=== PATIENT | female | born 1965 | race Caucasian/White ===

== ENCOUNTER 2017-08-13 18:50 | Observation (INO) ==
[~2017-08-13 18:50] MED LIST: ENOXAPARIN 40 MG/0.4 ML SYRINGE SUBCUT SCH
[2017-08-13] MEDS ORDERED: hydrALAZINE 20 MG/1 ML VIAL IV STA ×2 (19:39→22:13)
[2017-08-13] MEDS ORDERED: hydrALAZINE 20 MG/1 ML VIAL ONE (19:41)
--- NOTE | 2017-08-13 19:42 | Emergency Department Note ---
IZeferino Gwan, am scribing for, and in the presence of, Roxane Moreno DO 19:24 . IJosh Debra, DO, personally performed the services described in this documentation, ascribed by Fuentes Mcgarry in my presence, and it is both accurate and complete 941 . Arrival - Arrival Chief Complaint: Blood Pressure Stated Complaint: High BP, Vomiting ED Nursing Triage Note: AMB TO ER WITH C/O ELEVATED BP AND VOMITTING. STATES PCP CHANGED BP MEDS 4 DAYS AGO AND TODAY BP WAS ELEVATED AT HOME AROUND 160'S/ 100'S. STATES SHE CALLED HER PCP AND HE INSTRUCTED HER TO TAKE AN ADDITIONAL BP PILL. SHE DID INSTRUCTED BUT BP REMAINED ELEVATED AND SINCE HAS STILL BEEN ELEVATED AND HAS BEEN VOMITTING SINCE 1800. WAS CHANGED FROM HCTZ TO LOSARTAN. BP LEFT ARM INITIAL CHECK WAS 205/125. RIGHT ARM 185/112. Mode of Arrival: Ambulatory Limitations: No Limitations Source: Patient, Old Records Reviewed, RN Notes Reviewed - History of Present Illness HPI Narrative: Patient is a 51 y/o female, with a hx of HTN, who presents to the ED with a c/ o elevated BP and vomiting with an onset today. At time of triage, pt's BP was 185/112. Patient stated that she took her BP today at home and received a reading of 160's/100's. She then noted that she alerted her PCP Dr. Sunil Dorado and was instructed to administer an additional BP pill. Patient then said that s/p taking the BP medication, her reading remained elevated and she then began to vomit. This prompted the patient to report to ED for further evaluation. Patient confirmed that her PCP changed her BP medication from HCTZ to Losartan 4 days ago. During exam, patient was alert and awake. No other problems/complaints reported in ED. Onset (ago): hour(s) Consistency: constant Severity: moderate Date of Last Menstrual Period: NOW Allergies/Adverse Reactions: Allergies Allergy/AdvReac Type Severity Reaction Status Date / Time clindamycin Allergy RASH Verified 08/13/17 19:08 Penicillins Allergy RASH Verified 08/13/17 19:07 Sulfa (Sulfonamide Allergy Vomiting Verified 08/13/17 19:08 Antibiotics) Home Medications: Home Medications Medication Instructions Recorded Confirmed Type ALPRAZolam [Xanax] 0.5 mg PO DAILY PRN 11/22/16 08/13/17 History Losartan [Cozaar] 25 mg PO BID 08/13/17 08/13/17 History Review of System - Review of System 12 point system: reviewed and no additional remarkable complaints except as stated - Review of System Constitutional: Absent: chills, fever Gastrointestinal: Present: as per HPI, vomiting. Absent: abdominal pain, diarrhea Additional ROS comments: Patient has elevated blood pressure. Medical,Surgical,& Family Hx - Medical History Cardio: History of: Hypertension Psychological: History of: Anxiety Disorders, ADHD, Depression, Psychiatric Problems (PTSD) Rheumatology: History of;: Fibromyalgia - Family History Family History: Reports;: Family Cancer, Family Diabetes, Family Heart Disease - Social History Smoking Status: Never smoker Frequency of Alcohol Use: None Type of Drug Use: None Exam Vital Signs: Vital Signs Temperature 98.6 F 08/13/17 18:58 Pulse Rate 68 08/13/17 18:58 Respiratory Rate 18 08/13/17 18:58 Blood Pressure 185/112 08/13/17 18:58 O2 Sat by Pulse Oximetry 99 08/13/17 18:58 - General General appearance: alert, in no apparent distress - Head Head exam: Present: atraumatic, normocephalic - Eye Eye exam: Present: normal appearance, PERRL, EOMI - ENT ENT exam: Present: normal exam, normal oropharynx, mucous membranes moist, TM's normal bilaterally, normal external ear exam - Neck Neck exam: Present: full ROM, trachea midline. Absent: tenderness - Chest Chest inspection: Present: symmetric chest wall rise. Absent: tenderness - Respiratory Respiratory exam: Present: normal lung sounds bilaterally. Absent: respiratory distress - Cardiovascular Cardiovascular exam: Present: regular rate, normal rhythm, normal heart sounds. Absent: murmur - Abdominal Exam Abdominal exam: Present: soft, normal bowel sounds. Absent: distention, tenderness - Extremities Exam Extremities exam: Present: full ROM. Absent: tenderness - Back Exam Back exam: Present: full ROM. Absent: tenderness - Neurological Exam Neurological exam: Present: alert, oriented X3, CN II-XII intact. Absent: motor sensory deficit - Psychiatric Psychiatric exam: Present: normal affect, normal mood - Skin Skin exam: Present: warm, dry, intact, normal color Course Course Narrative: Patient was dispositioned as ready to discharge it was noted her blood pressure was still 170/110. Another dose of hydralazine 10 mg was ordered. Patient concerned about blood pressure staying up and will admit patient to the hospitalist service. She is stable at this time Results - Labs CBC & BMP: 08/13/17 19:19 08/13/17 19:19 Lab Results: I have reviewed the patients labs Labs: Laboratory Tests 08/13/17 08/13/17 19:19 19:19 WBC 9.9 RBC 4.28 Hgb 14.2 Hct 40.5 Plt Count 244 Neut % (Auto) 77.2 H Lymph % (Auto) 14.8 L Neut # (Auto) 7.6 H Sodium 140 Potassium 4.3 Chloride 105 Carbon Dioxide 29 BUN 12 Creatinine 0.90 Glucose 121 H Globulin 3.7 H Albumin/Globulin Ratio 0.9 L - Diagnostic Findings Procedure: CT: report reviewed by me (Head: No acute intracranial process. No significant interval change from the previous study. ) Disposition Clinical Impression: Hypertension Case discussed with: patient, patient's family Disposition: Still a Patient Instructions: Chronic Hypertension (ED), Hypertension (ED) Time of Disposition: 22:17
[2017-08-13 19:53] LABS: Basophils % 0.4 % (0.0-0.8); Eosinophils # 0.2 10*3/uL (0.0-0.87); Eosinophils % 1.9 % (0.00-10.9); Hematocrit 40.5 VOL% (35.7-47.0); Hemoglobin 14.2 GM/DL (12.0-16.0); Immature Granulocytes % 0.6 %; Immature Granulocytes Absolute 0.06 #; Lymphocytes # 1.5 10*3/uL (1.4-4.0); Lymphocytes % 14.8 % (21.3-54.2); Mean Corpuscular HGB Conc 35.1 GM/DL (32-36); Mean Corpuscular Hemoglobin 33 PG (27-34); Mean Corpuscular Volume 94.6 FL (87-102); Monocytes # 0.5 10*3/uL (0.11-0.8); Monocytes % 5.1 % (1.7-12.7); Neutrophils # 7.6 10*3/uL (1.4-7.4); Neutrophils % 77.2 % (38.7-73.9); Platelet Count 244 T/CUMM (130-400); Red Blood Count 4.28 MC/CUMM (3.8-5.5); Red Cell Distribution Width 11.9 % (9.3-17.3); White Blood Count 9.9 T/CUMM (4-12)
[2017-08-13 20:03] LABS: Albumin 3.6 G/DL (3.4-5.0); Bilirubin,Total 0.8 MG/DL (0.2-1.0); Calcium 9.3 MG/DL (8.5-10.1); Osmolality,Calculated 279.4 MOS/KG (273-304); Potassium 4.3 MMOL/L (3.5-5.1); Total Protein 7.3 G/DL (6.4-8.3)
[2017-08-13] MEDS ORDERED: cloNIDine 0.1 MG TABLET PO STA (20:10)
[2017-08-13] MEDS ORDERED: ONDANSETRON 4 MG/2 ML VIAL IV STA (20:11)
[2017-08-13] MEDS ORDERED: cloNIDine 0.1 MG TABLET ONE ×2 (20:12→20:18)
[2017-08-13] MEDS ORDERED: ONDANSETRON 4 MG/2 ML VIAL ONE (20:12)
--- NOTE | 2017-08-13 20:28 | CT Report ---
History: Headache Date: 08/13/2017 Study: CT head without contrast Comparison exam: September 15, [address] sections were obtained through the brain without contrast. The ventricles are midline in position without evidence of hydrocephalus. There is no mass or area of parenchymal hemorrhage. There is no gross CT evidence of acute cortical stroke. There is no extra-axial hematoma. The sinuses are generally clear. There is no obvious skull fracture. Impression: No acute intracranial process. No significant interval change from the previous study This CT exam was performed using one or more the following dose reduction techniques: Automated exposure control, adjustment of the MA and/or KV according to patient size, or use of iterative reconstruction technique. PROCEDURE INTERPRETED AT [facility] DEPARTMENT OF RADIOLOGY Final Report Signed by: Dr. Luz Elena Iqbal
[2017-08-13] MEDS ORDERED: MAGNESIUM CITRATE 300 ML BOTTLE ONE (22:49)
[2017-08-13] MEDS ORDERED: ONDANSETRON 4 MG/2 ML VIAL IV PRN (23:12)
[2017-08-13] MEDS ORDERED: PROMETHAZINE 25 MG TABLET PO PRN (23:12)
[2017-08-13] MEDS ORDERED: hydrALAZINE 20 MG/1 ML VIAL IV PRN (23:16)
--- NOTE | 2017-08-13 23:21 | Hospitalist History & Physical ---
Assessment and Plan (1) Hypertensive urgency Status: Acute Current Visit: Yes (2) Fibromyalgia Status: Acute Current Visit: Yes (3) Gastroenteritis Status: Acute Current Visit: Yes (4) Anxiety Status: Acute Current Visit: Yes (5) PTSD (post-traumatic stress disorder) Status: Acute Current Visit: Yes (6) Hypertension Status: Acute Assessment and plan: Patient's blood pressure in the emergency room was difficult to control with the diastolic pressure greater than 112. Patient is unable to keep anything down right now. Our plan for this patient 1. Admit patient our service 2. Gentle hydration with clear liquid diet 3. Medications for nausea 4. Home blood pressure medicine 5. Repeat labs in the morning 6. As needed hydralazine Current Visit: Yes History of Present Illness Chief complaint: Nausea vomiting not feeling well History of present illness: Ms. Nguyen is a 51 year old female with past medical history significant for PTSD, anxiety, hypertension and fibromyalgia who is in her normal state of health till today. Patient says she just was not feeling right she felt nauseated. She checked her blood pressure and it was 148/90. She is thrown up 3 times since 2 PM. She had some loose bowel movements and she came to our hospital for further evaluation. Patientrecently had her blood pressure medicines change in hydrochlorothiazide was DC'd approximately 1 week ago. Patient was told that her sodium was low by Dr. Dorado. Patient's face is flushed and I was consulted to admit her through the emergency room. Home Medications Medication Instructions Recorded Confirmed Type ALPRAZolam [Xanax] 0.5 mg PO DAILY PRN 11/22/16 08/13/17 History Losartan [Cozaar] 25 mg PO BID 08/13/17 08/13/17 History Allergies Allergy/AdvReac Type Severity Reaction Status Date / Time clindamycin Allergy RASH Verified 08/13/17 19:08 Penicillins Allergy RASH Verified 08/13/17 19:07 Sulfa (Sulfonamide Allergy Vomiting Verified 08/13/17 19:08 Antibiotics) Medical,Surgical,& Family Hx - Medical History Cardio: History of: Hypertension Psychological: History of: Anxiety Disorders, ADHD, Depression, Psychiatric Problems (PTSD) Rheumatology: History of;: Fibromyalgia - Surgical History Additional Surgical History: Patient did not tell me of any surgeries - Family History Family History: Reports;: Family Cancer, Family Diabetes, Family Heart Disease - Social History Smoking Status: Never smoker Frequency of Alcohol Use: None Type of Drug Use: None 12 point system: reviewed and no additional remarkable complaints except as stated Exam - Constitutional Vitals: Period Temp Pulse Resp BP Sys/Sutton Pulse Ox Last 24 Hr 98 F-98.6 F 68-68 18-18 185-185/112-112 99 General appearance: normal weight - Head Head exam: Present: normal inspection - Eye Eye exam: Present: EOMI Pupils: Present: GUSTAVO - ENT ENT exam: Present: normal exam - Neck Neck exam: Present: normal inspection - Respiratory Respiratory exam: Present: clear to auscultation bilaterally - Cardiovascular Cardiovascular exam: Present: regular rate and rhythm - GI/Abdominal GI/Abdominal exam: Present: normal bowel sounds - Extremities Exam Extremities exam: Present: normal inspection - Back Exam Back exam: Present: normal inspection - Neurological Exam Neurological exam: Present: alert, oriented X3 - Psychiatric Psychiatric exam: Present: anxious, flat affect - Skin Skin exam: Present: other (Patient's face is flushed) Results - Labs CBC & BMP: 08/13/17 19:19 08/13/17 19:19
[2017-08-13] MEDS ORDERED: SODIUM CHLORIDE 0.9% 1,000 ML IV SCH (23:30)
[2017-08-14] MEDS: ACETAMINOPHEN 325 MG TABLET PO PRN ×3 (00:27→18:44)
[2017-08-14 06:29] LABS: Basophils % 0.3 % (0.0-0.8); Eosinophils # 0.2 10*3/uL (0.0-0.87); Eosinophils % 1.9 % (0.00-10.9); Hematocrit 38.5 VOL% (35.7-47.0); Hemoglobin 13.3 GM/DL (12.0-16.0); Immature Granulocytes % 0.7 %; Immature Granulocytes Absolute 0.06 #; Lymphocytes % 22.1 % (21.3-54.2); Mean Corpuscular HGB Conc 34.5 GM/DL (32-36); Mean Corpuscular Hemoglobin 33 PG (27-34); Mean Corpuscular Volume 95.3 FL (87-102); Monocytes # 0.6 10*3/uL (0.11-0.8); Monocytes % 6.3 % (1.7-12.7); Neutrophils # 6.3 10*3/uL (1.4-7.4); Neutrophils % 68.7 % (38.7-73.9); Platelet Count 237 T/CUMM (130-400); Red Blood Count 4.04 MC/CUMM (3.8-5.5); Red Cell Distribution Width 11.9 % (9.3-17.3); White Blood Count 9.2 T/CUMM (4-12)
[2017-08-14 06:58] LABS: Calcium 8.9 MG/DL (8.5-10.1); Osmolality,Calculated 278.4 MOS/KG (273-304); Potassium 3.7 MMOL/L (3.5-5.1)
[2017-08-14] MEDS: ENOXAPARIN 40 MG/0.4 ML SYRINGE SUBCUT SCH ×2 (08:35→08:40)
[2017-08-14] MEDS: PANTOPRAZOLE 40 MG TABLET PO SCH ×2 (08:35→08:40)
[2017-08-14] MEDS ORDERED: LOSARTAN 25 MG TABLET PO SCH (09:00)
[2017-08-14] MEDS: ALPRAZolam 0.5 MG TABLET PO PRN (09:37)
--- NOTE | 2017-08-14 14:44 | Hospitalist Progress Note ---
Hospitalist: Subjective Interval history: Patient has no complaints. She denies any n/v/diarrhea. She is tolerating her clears but wants to advance. She denies any SOB or CP. Exam - Constitutional Vitals: Period Temp Pulse Resp BP Sys/Sutton Pulse Ox Last 24 Hr 97.4 F-98.9 F 54-68 18-20 129-185/86-112 94-99 General appearance: no acute distress - Head Head exam: Present: normal inspection - Eye Eye exam: Present: EOMI Pupils: Present: GUSTAVO - Respiratory Respiratory exam: Present: clear to auscultation bilaterally. Absent: rales, rhonchi, wheezes - Cardiovascular Cardiovascular exam: Present: regular rate and rhythm - GI/Abdominal GI/Abdominal exam: Present: normal bowel sounds, soft. Absent: distended, mass , tenderness - Extremities Exam Extremities exam: Absent: edema - Neurological Exam Neurological exam: Present: alert, oriented X3 - Psychiatric Psychiatric exam: Present: normal affect, normal mood Results - Labs CBC & BMP: 08/14/17 05:46 08/14/17 05:46 - Impressions Active Issues: 1. Hypertensive crises, resolving 2. Acute gastroenteritis, resolving 3. h/o FMS 4. h/o anxiety 5. h/o PTSD Plan: increase losartan to 50mg bid; monitor bmp; advance diet; continue home medications as appropriate; d/c IVFs; likely d/c in am as long as she is stable. Specialty Discharge - Follow Up or Referrals
[2017-08-14] MEDS: LOSARTAN 50 MG TABLET PO SCH (20:35)
[2017-08-15 06:55] LABS: Calcium 8.5 MG/DL (8.5-10.1); Magnesium 2.4 MG/DL (1.8-2.4); Osmolality,Calculated 278.4 MOS/KG (273-304); Potassium 4.4 MMOL/L (3.5-5.1)
[2017-08-15] MEDS: ENOXAPARIN 40 MG/0.4 ML SYRINGE SUBCUT SCH (08:43)
[2017-08-15] MEDS: PANTOPRAZOLE 40 MG TABLET PO SCH (08:44)
[2017-08-15] MEDS: LOSARTAN 50 MG TABLET PO SCH (08:45)
[2017-08-15] MEDS: ALPRAZolam 0.5 MG TABLET PO PRN (10:54)
[2017-08-15 12:33] VITALS: BP 136/77
--- NOTE | 2017-08-15 16:04 | Discharge Summary ---
Hospital Course - Hospital Course Hospital Course: Patient was admitted for hypertensive crises with blood pressure of 185/112 despite agents in the ER. She was also admitted for nausea/vomiting, and diarrhea. Patient's blood pressure was controlled while in the hospital. She was given supportive care with IVFs, anti emetics and clear liquid diet. Her diet was advanced to normal. Since her admission, she has not had any n/v/ diarrhea. Her blood pressure was controlled with increased dose of her home losartan of 50mg bid. She will be discharged on this dose. She will follow up with her PCM on 08/17/17. Active Issues: 1. Hypertensive crises, resolved. Current bp is 136/77. Will discharge on losartan. Will defer further management and follow up bmp to PCM. 2. Acute gastroenteritis, resolved 3. h/o FMS: stable 4. h/o anxiety: stable 5. h/o PTSD: stable Specialty Discharge - Follow Up or Referrals Discharge Plan - Discharge Data Discharge Diet: regular diet - Discharge Medications New Losartan [Cozaar] 50 mg PO BID tablet Continue ALPRAZolam [Xanax] 0.5 mg PO DAILY PRN PRN Reason: Anxiety Discontinued Losartan [Cozaar] 25 mg PO BID Potassium Chloride [Klor-Con 10] 20 meq PO DAILY - Follow Up or Referral - Forms/Instructions Instructions: Chronic Hypertension (ED), Hypertension (ED) Additional Discharge Instructions: Please follow up with your main doctor on Thursday. Please take 2 tablets of the 25mg of losartan twice a day Exam - Constitutional Vitals: Period Temp Pulse Resp BP Sys/Sutton Pulse Ox Last 24 Hr 97.6 F-98.3 F 49-64 12-18 111-136/69-86 96-98 General appearance: no acute distress - Head Head exam: Present: normal inspection - Eye Eye exam: Present: EOMI Pupils: Present: GUSTAVO - ENT ENT exam: Present: normal exam, normal oropharynx - Respiratory Respiratory exam: Present: clear to auscultation bilaterally - Cardiovascular Cardiovascular exam: Present: regular rate and rhythm - GI/Abdominal GI/Abdominal exam: Present: normal bowel sounds, soft. Absent: mass, tenderness - Extremities Exam Extremities exam: Absent: edema - Neurological Exam Neurological exam: Present: alert, oriented X3 - Psychiatric Psychiatric exam: Present: normal affect, normal mood Discharge Results Labs on day of discharge: Labs from last 24 hours 08/15/17 05:40 Sodium 140 Potassium 4.4 Chloride 106 Carbon Dioxide 30 Anion Gap 8.4 BUN 12 Creatinine 0.90 GFR Calculation 86 BUN/Creatinine Ratio 13.00 Glucose 96 Calculated Osmolality 278.4 Calcium 8.5 Magnesium 2.4 - Impressions Active Issues: 1. Hypertensive crises, resolved. Current bp is 136/77. Will discharge on losartan. Will defer further management and follow up bmp to PCM. 2. Acute gastroenteritis, resolved 3. h/o FMS: stable 4. h/o anxiety: stable 5. h/o PTSD: stable Patient is hemodynamically and clinically stable. She is safe for discharge. DS: Provider Date of admission: 08/13/17 23:12 Primary care physician: Sunil Dorado, Attending physician on admission: Deniz Looney MD Discharging clinician: Mague Matt MD
== END 2017-08-15 17:49 | disposition home or self-care (01) ==
LOC: N.EDINP 18:50 → N.ED 18:50 → SUATTDRO 23:12 → N.3E 08-14 00:02
PROVIDERS: ADMIT Internal Medicine; ATTEND Internal Medicine